=== PATIENT | male | born 1960 ===

== ENCOUNTER 2018-05-30 23:48 | Emergency (ER) | payer OTHER ==
[2018-05-30 23:48] VITALS: BMI 28.8
[2018-05-31 00:05] VITALS: RESP 20
--- NOTE | 2018-05-31 01:07 | C.PDOC ---
History Of Present Illness 58 year old male, whose past medical history includes meniscal tear in left knee, presents to the ED for evaluation of worsening left knee pain. Patient states his pain radiates from his knee to his hip and reports difficulty with walking. He has been alternating between Toradol and Naproxen at home, without relief. Patient denies any recent direct trauma/injury to the site, recent falls or extremity numbness/weakness. Time Seen by Provider: 05/31/18 00:24 Chief Complaint (Nursing): Lower Extremity Problem/Injury History Per: Patient History/Exam Limitations: no limitations Onset/Duration Of Symptoms: Days Current Symptoms Are (Timing): Worse Additional History Per: Patient - Knee Description Of Injury: denies: Fell, Struck With Object, Struck Against Object, Twisted Past Medical History Reviewed: Historical Data, Nursing Documentation, Vital Signs Vital Signs: Last Vital Signs Temp 98.4 F 05/30/18 23:57 Pulse 72 05/30/18 23:57 Resp 20 05/30/18 23:57 BP 135/80 05/30/18 23:57 Pulse Ox 97 05/30/18 23:57 - Medical History PMH: No Chronic Diseases Denies: Chronic Kidney Disease Surgical History: No Surg Hx - [facility] Procedures TETANUS TOXOID ADMINIST (01/24/15) Family History: States: Unknown Family Hx - Social History Hx Alcohol Use: Yes Hx Substance Use: No - Immunization History Hx Tetanus Toxoid Vaccination: No Hx Influenza Vaccination: No Hx Pneumococcal Vaccination: No Review Of Systems Musculoskeletal: Positive for: Other (left knee pain radiating to left hip, atraumatic ) Neurological: Negative for: Weakness, Numbness Physical Exam - Physical Exam Appears: Non-toxic, No Acute Distress Skin: Normal Color, Warm, Dry, No Other (erythema or warmth over left knee ) Head: Atraumatic, Normacephalic Eye(s): bilateral: Normal Inspection Extremity: Normal ROM (left knee ), Tenderness (mild, to lateral aspect of left knee ), No Calf Tenderness, Capillary Refill (less than 2 seconds ), No Deformity, No Swelling, No Other (sciatic notch tenderness ) Pulses: Left Dorsalis Pedis: Normal, Right Dorsalis Pedis: Normal Neurological/Psych: Oriented x3, Normal Speech, Normal Cognition, Normal Sensation Gait: Other (mild limp noted when walking) ED Course And Treatment O2 Sat by Pulse Oximetry: 97 (on RA ) Pulse Ox Interpretation: Normal Medical Decision Making Medical Decision Making: Impression: 58 year old male with left knee pain Plan: * Tylenol PO * reassess and disposition Progress: Tylenol PO given. On reassessment, patient is resting comfortably, showing no signs of distress and reports an improvement in his pain. Patient is stable for discharge. He is advised to follow up with his PMD within 1-2 days for further evaluation. Disposition Counseled Patient/Family Regarding: Diagnosis, Need For Followup, Rx Given - Disposition Referrals: [facility] [Outside] Disposition: HOME/ ROUTINE Disposition Time: 01:04 Condition: GOOD Additional Instructions: [place] Ketorolac o Naproxen, no ambos al mismo tiempo. Tambin puede kris acetaminofeno con cualquiera de esos medicamentos. Seguimiento en clnica- concertar oseas con el ortopedista. ( Dr German)Regrese a la baldev de emergencias por sntomas peores. Take either Ketorolac or Naproxen, not both at same time. Can also take acetaminophen with either of those medications. Follow up in clinic- make appointment with the orthopedist. ( Dr German) Return to ER for worse symptoms. Prescriptions: Acetaminophen [Tylenol 325mg tab] 650 mg PO Q4 #50 tab Instructions: Chronic Knee Pain (DC) Forms: Gen Discharge Inst Turkmen, [email or web address] (Turkmen) Print Language: KHMER - Clinical Impression Clinical Impression: Chronic pain of left knee - PA / COMPANY PILOT / Resident Statement MD/DO has reviewed & agrees with the documentation as recorded. - Scribe Statement The provider has reviewed the documentation as recorded by the Scribe (Joan Pathak) All medical record entries made by the Scribe were at my direction and personally dictated by me. I have reviewed the chart and agree that the record accurately reflects my personal performance of the history, physical exam, medical decision making, and the department course for this patient. I have also personally directed, reviewed, and agree with the discharge instructions and disposition.
[2018-05-31 01:24] VITALS: BP 130/80; PULSE 82; TEMP 98.6
[2018-05-31 05:35] VITALS: O2SAT 97
== END 2018-05-31 01:21 | disposition home or self-care (01) ==
LOC: C.ER 23:48
DX: M25.562 Pain in left knee (principal); G89.29 Other chronic pain

== ENCOUNTER 2018-07-03 16:20 | Outpatient (CLI) | payer SELFPAY | END 2018-07-03 16:21 | disposition home or self-care (01) | LOC: C.MRIC 16:21 | DX: M25.562 Pain in left knee (principal) ==

== ENCOUNTER 2018-08-03 11:53 | Outpatient (CLI) | payer OTHER | END 2018-08-03 11:54 | disposition home or self-care (01) | LOC: C.MRIC 11:53 | DX: M16.12 Unilateral primary osteoarthritis, left hip (principal) ==

== ENCOUNTER 2018-08-24 06:48 | Day surgery (SDC) | payer OTHER ==
[2018-08-16 09:57] VITALS: BMI 29.2
[2018-08-24] MEDS ORDERED: EPINEPHrine- 1.5 MG in Sodium Chloride 0.9% Irrig 3,000 ML IV ONE (07:30)
[2018-08-24] MEDS ORDERED: ceFAZolin 1 gm in NS 1 GM/100 ML BAG IVPB ONE (08:11)
[2018-08-24] MEDS ORDERED: Lidocaine Hydrochloride 20 ML INJ ONE (08:11)
[2018-08-24] MEDS ORDERED: Midazolam 2 MG/2 ML VIAL ONE (08:53)
[2018-08-24] MEDS ORDERED: Succinylcholine Chloride 20 mg/ml Syr (5 ml) IV ONE (08:53)
[2018-08-24] MEDS ORDERED: Propofol 10 mg/ml Inj (20 ML) ONE (08:53)
[2018-08-24] MEDS ORDERED: Rocuronium 10 mg/ml (10 ml) ONE (09:11)
[2018-08-24] MEDS ORDERED: Bacitracin 500 Units/gm Oint Foilpak UD ONE (09:57)
[2018-08-24] MEDS ORDERED: Neostigmine 1:1000 (1 mg/ml) Inj ONE (10:00)
[2018-08-24] MEDS ORDERED: Lactated Ringer's 1,000 ML IV ONE (10:17)
--- NOTE | 2018-08-24 10:20 | PCM.SURG1 ---
Surgeon's Initial Post Op Note - Surgeon's Notes Surgeon: Bianca German MD Ship Painter Helper: Alexa Haney PA-C Type of Anesthesia: General Endo Anesthesia Administered By: DR. Liang Pre-Operative Diagnosis: Left knee medial and lateral meniscal tears Operative Findings: tourniquet: 31min @350mmHg Post-Operative Diagnosis: same Operation Performed: Left knee surgical arthroscopy. Arthroscopic partial medial and lateral meniscectomies. Arthroscopic synovectomy Specimen/Specimens Removed: shavings Estimated Blood Loss: EBL {In ML}: 2 Blood Products Given: N/A Drains Used: No Drains Post-Op Condition: Fair Date of Surgery/Procedure: 08/24/18 Time of Surgery/Procedure: 10:21 Results - Vital Signs Recent Vital Signs: Last Vital Signs Temp 96.8 F L 08/24/18 06:54 Pulse 64 08/24/18 06:54 Resp 18 08/24/18 06:54 BP 145/87 08/24/18 06:54 Pulse Ox 98 08/24/18 06:54 - Impressions Impression: [place] REIMBURSEMENT REPRESENTATIVE patient report reviewed, no CDS. Patient counseled on the risks of addiction, physical or psychological dependence, and overdose associated with opioid drugs and the danger of taking opioid drugs with alcohol and other central nervous system depressants, and cautioned patient on storage and disposal.
[2018-08-24] MEDS ORDERED: HYDROmorphone 0.5 mg/0.5 ml ISec IVP PRN (10:21)
[2018-08-24] MEDS ORDERED: Oxycodone/Acetaminophen 5/325 mg Tab PO PRN (10:24)
[2018-08-24] MEDS ORDERED: Lactated Ringer's 1,000 ML IV SCH (10:30)
[2018-08-24 11:26] VITALS: O2SAT 100
[2018-08-24 12:03] VITALS: BP 101/80; PULSE 78; RESP 18; TEMP 97.9
--- NOTE | 2018-08-29 03:29 | OP ---
PROCEDURE DATE: 08/24/2018 PREOPERATIVE DIAGNOSIS: Internal derangement, left knee. POSTOPERATIVE DIAGNOSES: 1. Tear of medial meniscus, tear of lateral meniscus. 2. Tricompartmental synovitis. SURGEON: Fran German MD PILING SETTER: Jayesh Marie PA-C SECOND BRAKE MECHANIC: ELISE Restrepo ANESTHESIA: General endotracheal anesthesia. ANESTHESIA ADMINISTERED BY: Júnior Liang MD OPERATIVE FINDINGS: Tear of medial meniscus, tear of lateral meniscus, tricompartmental synovitis. SPECIMENS REMOVED: Shaving synovium cartilage. ESTIMATED BLOOD LOSS: 2 mL. BLOOD PRODUCTS: No blood products given. DRAINS: No drains. POSTOPERATIVE CONDITION: Stable. TIME OF SURGERY: 10:21. 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 Pros, cons, risks, and benefits of surgical approach were discussed. Possibility of mechanical failure, infection, thromboembolic disease, possibility of secondary or tertiary surgery was discussed. OPERATIVE PROCEDURE: After the satisfactory induction of the anesthetic, after having identified the side, site, and procedure, and a critical pause/time-out, after having obtained informed consent, the lower extremity was exsanguinated using a 6-inch Esmarch bandage, the tourniquet which had been applied was insufflated to 350 mmHg. The joint was insufflated with 10 mL of 1% lidocaine without epinephrine. Using #11 blade, followed by spreading, followed by introduction of blunt trocar, the arthroscope was introduced. Examination of the joint commenced. There was found to be evidence of an exuberant synovitis tricompartmentally. Triangulation was accomplished using #18 gauge spinal needle, followed by #11 blade, followed by spreading, followed by introduction of blunt trocar with the arthroscope anterolaterally. A careful partial tricompartmental synovectomy was accomplished using the arthroscopic shaver. Please refer to the video images and the photographs. With the arthroscope anterolaterally, with the knee in figure-of -four position, the anterior cruciate ligament was found to be intact, there was found to be a tear at the inner free edge of the medial meniscus. With no evidence of meniscal separation, the arthroscope was transferred anteromedially. Again, with the surgery exerting a general valgus stress, the meniscal tear at the inner aspect was identified; using a combination of 3.4 mm Dyonics suction punch, a partial medial meniscectomy was accomplished. The inner free edge was smoothed using arthroscopic wand. With the arthroscope anterolaterally, with the knee in [id number] position, using a combination of the straight-biting basket forceps and the side-biting basket forceps, a partial lateral meniscectomy was accomplished using the arthroscopic shaver and the arthroscopic basket. Using a combination of straight-biting basket forceps and the side-biting basket forceps, a partial lateral meniscectomy was accomplished. With the arthroscope anterolaterally, with the knee in gentle valgus stress, the inner free aspect was exposed using a combination of the straight-biting basket forceps and the side-biting basket forceps, a partial medial meniscectomy was accomplished, partial lateral meniscectomy was accomplished. Partial tricompartmental synovectomy was completed. Bleeding points were controlled with the arthroscopic wand. The wound was thoroughly irrigated. Closure was in layers with interrupted Vicryl and nylon. Intraarticular injection was offered. Asa Chester compression dressing was applied. Fran German MD
== END 2018-08-24 12:39 | disposition home or self-care (01) ==
LOC: C.SDS 06:48
PROVIDERS: ATTEND Orthopaedic Surgery
DX: S83.242A Other tear of medial meniscus, current injury, left knee, initial encounter (principal); M65.9 Synovitis and tenosynovitis, unspecified
CPT/HCPCS: 29876; 29880; 88304; 97116; 97161; G8978; G8979; G8980; J0171; J0690; J2250; J2405; J2704; J2710; J3010; J7120

== ENCOUNTER 2018-09-28 09:45 | Outpatient (CLI) | payer OTHER | END 2018-09-28 09:46 | disposition home or self-care (01) | LOC: C.RADH 09:45 | DX: M79.605 Pain in left leg (principal) ==